=== PATIENT | female | born 1960 | race Caucasian/White ===

== ENCOUNTER 2018-05-23 07:42 | Day surgery (SDC) | payer OTHER ==
[~2018-05-23] VITALS: Ht 162.6 cm; Wt 86.2 kg
[~2018-05-23 07:42] MED LIST: ACET325T9 PO; ASPI325T8 PO; BUPIVAC MPF-EPI 0.5%-1:200000 30 ML VIAL. ONE; FISH400C4 PO; IBUP200C PO; IV RINGERS,LACTATED 1000ML 1,000 ML IV SCH; MULT-246 PO; ONDANSETRON PF 4 MG/2 ML VIAL. IV PRN; PROCHLORPERAZINE 10 MG/2 ML VIAL. IV PRN; RANI-376 PO; [UNRECOGNIZED DRUG - OTHER]; progesterone cream
[2018-05-23] MEDS ORDERED: MIDAZOLAM HCL/PF 2 MG/2 ML VIAL. ONE (08:13)
[2018-05-23] MEDS ORDERED: FAMOTIDINE 20 MG/2 ML VIAL ONE (08:13)
[2018-05-23] MEDS ORDERED: fentaNYL PF VIAL 100 MCG/2 ML VIAL ONE ×2 (08:13→09:41)
[2018-05-23] MEDS ORDERED: ROCURONIUM 100 MG/10 ML VIAL. ONE ×2 (08:14→09:28)
[2018-05-23] MEDS ORDERED: DEXAMETHASONE SOD PHOS 20 MG/5 ML VIAL. ONE (08:15)
[2018-05-23] MEDS ORDERED: ONDANSETRON PF 4 MG/2 ML VIAL. ONE (08:15)
[2018-05-23] MEDS ORDERED: ROCURONIUM 50 MG/5 ML VIAL. ONE (08:24)
--- NOTE | 2018-05-23 08:53 | PDOC ---
SURGICAL PROGRESS NOTE Subjective 57 yo F with umbilical/VIH, hx of incarcerated, s/p reduction. TO OR for umbilical hernia repair, laparoscopic exploration. R/R/B/A d/w pt. Risks, including, but not limited to: bleeding, infection, damage to surrounding structures, risk of anesthesia, risk of recurrence. She appears to understand, her questions are answered and she elects to proceed. Office note H&P reviewed and unchanged. Pt reexamined and site marked with pt. Vital Signs Vital Signs Date Time Temp Pulse Resp B/P (MAP) Pulse Ox O2 Delivery O2 Flow Rate FiO2 05/23/18 08:32 97.4 88 16 190/88 97 Room Air 97.4 ANTONIO CRUZ MD May 23, 2018 08:53
[2018-05-23] MEDS ORDERED: PHENYLEPHRINE in 0.9% NACL PF 1 MG/10 ML SYRINGE. IV ONE (09:11)
[2018-05-23] MEDS ORDERED: KETOROLAC 30 MG/ML INJ FOR OR. INJ ONE (09:13)
--- NOTE | 2018-05-23 09:32 | PDOC4 ---
OPERATIVE NOTE Date: Date: May 23, 2018 Pre-Op Diagnosis: Umbilical hernia Post-Op Diagnosis: same Procedure Performed: umbilical hernia repair, laparoscopic exploration Surgeon: Collins Cruz Anesthesia Type: GETA Blood Loss: minimal Specimans Obtained: hernia sac Findings: small umbilical hernia, no viscera, no other hernias seen or other pathology Complications: none Operative Note: After obtaining informed consent, patient was taken to OR, induced under GETA and prepped in the usual fashion. Vertical incision was made using cautery, medial to trini in midline and just superior to umbilicus. Fascia appears to be intact. Given this, 5 mm port placed LUQ under laparoscopic guidance. Abdominal cavity explored and no other pathology or hernia identified. Viscera normal throughout. Small hernia noted right below umbilicus, approximately 1 cm. Using laparoscopic guidance, hernia sac identified, sharply dissected out circumferentially and down to fascia. Hernia sac amputated with cautery and sent to pathology. Fascia defect closed with 0 PDS. Laparoscopically identified to have good repair. Port removed without bleeding. Skin repaired with 3 0 vicryl and 4 0 monocryl. Dressing placed. All counts correct. No immediate complications. ANTONIO CRUZ MD May 23, 2018 09:32
[2018-05-23] MEDS: fentaNYL PF VIAL 100 MCG/2 ML VIAL IV PRN ×2 (09:46→10:21)
[2018-05-23] MEDS ORDERED: OXYC1TAB15 PO (10:14)
[2018-05-23] MEDS ORDERED: DOCU-109 PO (10:16)
[2018-05-23] MEDS ORDERED: oxyCODONE/APAP 5/325 1 TAB TABLET ONE (10:18)
[2018-05-23] MEDS ORDERED: oxyCODONE/APAP 5/325 1 TAB TABLET PO ONE (10:45)
[2018-05-23 10:50] VITALS: BP 110/58
--- NOTE | 2018-05-23 11:14 | DISCH ---
DISCHARGE INSTRUCTIONS Condition on Discharge Condition on Discharge: Stable Activity After Discharge Activity Instructions for Disc: Activity as tolerated Lifting Instructions after Dis: No heavy lifting Driving Instructions after Dis: Do not drive (3-4 days) Diet after Discharge Diet after Discharge: Regular Wound Incision Care Wound/Incision Care: Ice to area for comfort Other wound/incision instructi: barry showjennifer Follow-Up Follow up with: Dr Davila two weeks KYLE CHUA MD May 23, 2018 11:13
--- NOTE | 2018-05-24 18:08 | PATHOLOGY ---
[facility] Accession Number: [id number] . 01 Material submitted: . HERNIA SAC . 01 Clinical history: . Umbilical hernia . 02 Diagnosis: Segments of fibromembranous and fibroadipose tissue, umbilical hernia repair: - Hernia sac. . (JPM/at;05/24/2018) QTA/05/24/2018 . 02 Electronically signed: . Roosevelt Varela MD, Pathologist NPI- [id number] . 01 Gross description: . The specimen is received in formalin, labeled "Lilo Ward, hernia sac", is a fibromembranous yellow lobulated soft tissue measuring 2.0 x 2.0 x 1.0 cm in aggregate. No discrete nodules or masses identified. Configuration Management Analyst tissue is submitted in A1. ([facility]; 05/23/2018) SHS/SHS . 02 Pathologist provided ICD-10: K42.9 . 02 CPT . 054137 Specimen Comment: A courtesy copy of this report has been sent to Specimen Comment: [phone], . Specimen Comment: Report sent to / JOY Specimen Comment: A duplicate report has been generated due to demographic updates. Performed at: 01 [facility] [address], [place] [id number] MD Demetrio Capone MD Phone: [phone] Performed at: 02 [facility] [address], [place] [id number] MD Roosevelt Varela MD Phone: [phone]
== END 2018-05-23 11:20 | disposition home or self-care (01) ==
LOC: SURG 07:42
PROVIDERS: ATTEND Surgery
DX: K42.9 Umbilical hernia without obstruction or gangrene (principal); Z88.0 Allergy status to penicillin; Z88.1 Allergy status to other antibiotic agents; Z88.5 Allergy status to narcotic agent; Z88.8 Allergy status to other drugs, medicaments and biological substances; Z79.899 Other long term (current) drug therapy; G89.29 Other chronic pain; Z98.890 Other specified postprocedural states; Z90.710 Acquired absence of both cervix and uterus; Z90.722 Acquired absence of ovaries, bilateral; Z90.79 Acquired absence of other genital organ(s); Z90.49 Acquired absence of other specified parts of digestive tract; Z80.41 Family history of malignant neoplasm of ovary; Z80.0 Family history of malignant neoplasm of digestive organs; Z83.3 Family history of diabetes mellitus; Z82.0 Family history of epilepsy and other diseases of the nervous system; Z87.891 Personal history of nicotine dependence; Z72.89 Other problems related to lifestyle; Z91.013 Allergy to seafood
CPT/HCPCS: 49652; 88302; J0780; J1100; J1885; J1956; J2250; J2370; J2405; J3010; J3490; J7030